=== PATIENT | female | born 1965 | race Caucasian/White ===

== ENCOUNTER 2020-03-31 02:13 | Outpatient (REF) | payer OTHER, SELFPAY ==
[2020-03-31 04:58] LABS: SARS COV2 PCR INHOUSE NEGATIVE (Negative)
[2020-04-04 09:56] LABS: HPV mRNA E6/E7 Not Detected (Not Detected)
== END 2020-03-31 02:14 | disposition home or self-care (01) ==
LOC: HO.LAB 02:13
PROVIDERS: Visit Provider Internal Medicine
DX: Z20.828 Contact with and (suspected) exposure to other viral communicable diseases (principal); N95.0 Postmenopausal bleeding; Z78.0 Asymptomatic menopausal state; Z12.31 Encounter for screening mammogram for malignant neoplasm of breast
CPT/HCPCS: 87624; 87625; 87635; 88142

== ENCOUNTER 2020-04-04 06:04 | Outpatient (REF) | payer OTHER, SELFPAY ==
[2020-04-04 07:29] LABS: COVID-19 Test Negative (Negative)
== END 2020-04-04 06:05 | disposition home or self-care (01) ==
LOC: HO.LAB 06:04
PROVIDERS: Visit Provider Internal Medicine
DX: Z20.828 Contact with and (suspected) exposure to other viral communicable diseases (principal)
CPT/HCPCS: 87635

== ENCOUNTER 2020-05-26 01:05 | Emergency (ER) | payer OTHER, SELFPAY ==
[2020-05-26 01:06] VITALS: BP 138/63; PULSE 80; RESP 16; TEMP 36.6; O2SAT 99; BMI 33.3
--- NOTE | 2020-05-26 01:13 | ED.ALLEREA ---
HPI - Allergic Reaction General Chief complaint: Allergic Reaction Stated complaint: Allergic Reaction Time Seen by Provider: 05/26/20 01:12 Source: patient Mode of arrival: ambulatory Limitations: no limitations History of Present Illness HPI narrative: This is a 54-year-old female who presents with complaints of worsening pruritic rash over the past 3 days that is located on her trunk and is now spreading to the arms this is associated with having undergone treatment with a topical antifungal to the inframammary area. Patient has stopped the antifungal since yesterday and has attempted to get relief and resolution of her rash with musk-los-sbcqhka Benadryl and Pepcid without success. She denies any associated difficulty breathing, shortness of breath, difficulty swallowing. Related Data Home Medications Medication Instructions Recorded Confirmed atorvastatin 40 mg tablet 40 mg PO BEDTIME 03/31/20 coenzyme Q10 10 mg capsule 10 mg PO TID 03/31/20 hydrochlorothiazide 25 mg tablet 25 mg PO BID 03/31/20 omega 3-vzq-dow-fish oil 60 mg-90 1 cap PO DAILY 03/31/20 mg-500 mg capsule Previous Rx's Medication Instructions Recorded prednisone 40 mg PO DAILY 4 Days #8 tab 05/26/20 Allergies Allergy/AdvReac Type Severity Reaction Status Date / Time IVP dye Allergy Unknown Uncoded 07/22/19 00:00 ivp dye Allergy Unknown Uncoded 08/14/19 00:00 Review of Systems Review of Systems: Pertinent positives and negatives as stated in HPI 10 point review of systems otherwise negative. PMFSH Past Medical History Source: nursing notes reviewed Medical History Carpal tunnel syndrome Hx of gastroesophageal reflux (GERD) Hx of hyperlipidemia Obesity (BMI 30-39.9) Postmenopausal bleeding Screening mammogram, encounter for Surgical History H/O bone graft History of ankle surgery History of endometrial ablation Hx of breast reduction, elective Family History Family History Father Myocardial infarction Mother COPD (chronic obstructive pulmonary disease) Brother Diabetes mellitus Maternal Aunt Breast CA Social History Social History Alcohol intake: never Smoking Status: Former smoker Advance Directives: No Physical Exam Vital Signs: Vital Signs: Last Vital Signs Temp 97.9 F 05/26/20 01:06 Pulse 80 05/26/20 01:06 Resp 16 05/26/20 01:06 BP 138/63 05/26/20 01:06 Pulse Ox 99 05/26/20 01:06 Body Mass Index 33.3 VITAL SIGNS: Reviewed. GENERAL: Well developed, well nourished, in no acute distress. HEAD: Normocephalic/atraumatic, EYES: PERRLA, EOMI intact without pain, no nystagmus/pallor/icterus noted EARS: Ext canals without abnormality, TMs non-bulging and non-erythematous NOSE: Nares patent bilateral OROPHARYNX: no oral lesions noted, posterior pharynx clear and non-erythematous without noted tonsillar enlargement/erythema/exudates NECK: Supple, no adenopathy LUNGS: Normal breath sounds. No adventitious sounds or accessory muscle use. SpO2<99> CARDIOVASCULAR: Regular rate and rhythm without noted murmurs, no JVD or lower extremity edema. ABDOMEN: Soft, non-tender, non-distended with bowel sounds. No rigidity. No guarding. No palpable masses or hernias noted MUSCULOSKELETAL: No tenderness, deformities, or effusions noted on gross inspection. EXTREMITIES: No cyanosis, clubbing or edema. SKIN: Urticarial rash to the truncal area an isolated patches on the upper extremities, no ulcerations, jaundice, pallor, or petechiae. NEUROLOGIC: Alert and oriented x 4. Strength and sensation to light touch were grossly intact x 4. Course Course Course Narrative: This is a 54-year-old female with history and clinical presentation most consistent with allergic reaction to recent antifungal use and will treat with IV Solu-Medrol and Benadryl and re-evaluate. On re-evaluation patient reports improvement in feelings of itchiness and she will be discharged with a Medrol Tucker. Discharge Plan Discharge Clinical Impression: Urticarial rash Allergic reaction Qualifiers: Encounter type: initial encounter Qualified Code(s): T78.40XA - Allergy, unspecified, initial encounter Patient Disposition: Home, Self-Care Instructions: Urticaria (ED), General Allergic Reaction (ED) Additional Instructions: Please do not hesitate to return to the emergency department to do experience any difficulty breathing or worsening your rash despite being on the prescribed medication. Please be advise you will need to use an antacid during the time that you are on steroids as you will likely suffer from acid reflux. Prescriptions: New prednisone 20 mg tablet 40 mg PO DAILY 4 Days Qty: 8 RF: 0 No Action hydrochlorothiazide 25 mg tablet 25 mg PO BID RF: 0 atorvastatin 40 mg tablet 40 mg PO BEDTIME RF: 0 coenzyme Q10 [Co Q-10] 10 mg capsule 10 mg PO TID RF: 0 omega 9-mig-rjd-fish oil [Fish Oil] 60-90-500 mg capsule 1 cap PO DAILY RF: 0 Referrals: Physician,Unknown [Primary Care Provider] - 2 days
[2020-05-26] MEDS: methylPREDNISolone Sod Succ/PF 125 MG/2 ML VIAL IVPUSH (01:25)
[2020-05-26] MEDS: diphenhydrAMINE HCL 50 MG/ML VIAL 25 MG IVPUSH (01:25)
== END 2020-05-26 02:05 | disposition home or self-care (01) ==
PROVIDERS: Emergency Provider Student in an Organized Health Care Education/Training Program
DX: L50.0 Allergic urticaria (principal); Z79.899 Other long term (current) drug therapy; Z87.891 Personal history of nicotine dependence
CPT/HCPCS: 96374; 96375; 99283; 99284; J1200; J2930

== ENCOUNTER 2020-07-20 00:08 | Outpatient (REF) | payer OTHER, SELFPAY ==
[2020-07-20 01:19] LABS: MANUAL DIFF FLAG NO
[2020-07-20 01:24] LABS: Basophils Percent Auto 0.5 % (0-2); Eosinophils Absolute Auto 0.1 X10*3/uL (0.0-0.4); Eosinophils Percent Auto 1.6 % (0-4); Hematocrit 35.3 % (37-47); Hemoglobin 12.5 g/dl (12.0-16.0); Imm Gran Abs Auto 0.01 X10*3/uL (0.00-0.03); Imm Gran Pct Auto 0.1 % (0.0-0.4); Lymphocytes Absolute Auto 2.4 X10*3/uL (1.2-4.9); Mean Corpuscular HGB Conc 35.4 g/dl (31.0-35.0); Mean Corpuscular Hemoglobin 32.6 pg (27.0-33.0); Mean Corpuscular Volume 91.9 fL (80-98); Monocytes Absolute Auto 0.6 X10*3/uL (0.1-1.2); Monocytes Percent Auto 7.3 % (2-11); Neutrophils Absolute Auto 4.8 X10*3/uL (2.0-8.3); Neutrophils Percent Auto 60.5 % (45-73); Platelet Count 329 X10*3/uL (160-400); Red Blood Count 3.84 X10*6/uL (4.20-5.50); Red Cell Distribution Width 11.3 % (11.0-16.0)
[2020-07-20 01:47] LABS: Alanine Aminotransferase 31 U/L (0-31); Albumin Level 4.3 g/dL (3.5-5.0); Alkaline Phosphatase 76 U/L (39-117); Anion Gap 13 (12-20); Aspartate Amino Transferase 21 U/L (5-31); Bilirubin Direct 0.2 mg/dL (0.0-0.5); Bilirubin Total 0.5 mg/dL (0.0-1.0); Blood Urea Nitrogen 21 mg/dL (9-16); Calcium 8.6 mg/dL (8.4-10.2); Carbon Dioxide 29 mmol/L (22-29); Chloride 99 mmol/L (96-108); Estimated Glomerular Filt Rate 56; Glucose Random 118 mg/dL (60-115); Potassium 3.2 mmol/L (3.3-5.1); Sodium 138 mmol/L (135-145); Total Protein 6.9 g/dL (6.5-8.0)
[2020-07-20 02:09] LABS: Free T4 (Free Thyroxine) 1.03 ng/dL (0.71-1.85); Thyroid Stimulating Hormone 1.72 uIU/mL (0.32-4.0)
== END 2020-07-20 00:09 | disposition home or self-care (01) ==
LOC: HO.LAB 00:08
PROVIDERS: Visit Provider Dermatology
DX: L30.9 Dermatitis, unspecified (principal)
CPT/HCPCS: 36415; 80048; 80076; 84439; 84443; 85025

== ENCOUNTER 2021-01-13 03:34 | Emergency (ER) | payer OTHER, SELFPAY ==
--- NOTE | ~2021-01-13 | XR_ITS ---
EXAMINATION: XR CHEST CLINICAL INFORMATION: Chest pain COMPARISON: None TECHNIQUE: 2 views of the chest were obtained. FINDINGS: No significant abnormality is noted involving the heart, lungs, mediastinum, bony thorax or soft tissues. XR/XR chest 2V IMPRESSION: Unremarkable examination.
[2021-01-13 03:36] VITALS: BP 142/71; PULSE 74; RESP 16; TEMP 36.7; O2SAT 97; BMI 32.8
--- NOTE | 2021-01-13 03:40 | ECG_ITS ---
Test Reason : CP Blood Pressure : / mmHG Vent. Rate : 072 BPM Atrial Rate : 072 BPM P-R Int : 154 ms QRS Dur : 084 ms QT Int : 406 ms P-R-T Axes : 049 001 003 degrees QTc Int : 444 ms Normal sinus rhythm Possible Left atrial enlargement Possible Anterior infarct , age undetermined Abnormal ECG No previous ECGs available Referred By: Lit Silva Electronically Signed By:Kevin Diaz
[2021-01-13 04:02] LABS: MANUAL DIFF FLAG NO
[2021-01-13 04:04] LABS: Basophils Percent Auto 0.2 % (0-2); Eosinophils Absolute Auto 0.1 X10*3/uL (0.0-0.4); Eosinophils Percent Auto 0.6 % (0-4); Hematocrit 32.2 % (37-47); Hemoglobin 11.4 g/dl (12.0-16.0); Imm Gran Abs Auto 0.03 X10*3/uL (0.00-0.03); Imm Gran Pct Auto 0.3 % (0.0-0.4); Lymphocytes Absolute Auto 2.8 X10*3/uL (1.2-4.9); Lymphocytes Percent Auto 32.2 % (20-40); Mean Corpuscular HGB Conc 35.4 g/dl (31.0-35.0); Mean Corpuscular Volume 93.3 fL (80-98); Mean Platelet Volume 9.5 fL (9.4-12.3); Monocytes Absolute Auto 0.7 X10*3/uL (0.1-1.2); Monocytes Percent Auto 8.4 % (2-11); Neutrophils Absolute Auto 5.1 X10*3/uL (2.0-8.3); Neutrophils Percent Auto 58.3 % (45-73); Platelet Count 285 X10*3/uL (160-400); Red Blood Count 3.45 X10*6/uL (4.20-5.50); Red Cell Distribution Width 11.9 % (11.0-16.0); White Blood Count 8.7 X10*3/uL (4.8-10.8)
[2021-01-13 04:15] LABS: D Dimer 260 NG/ML
[2021-01-13 04:27] LABS: Alanine Aminotransferase 29 U/L (0-31); Albumin Level 4.4 g/dL (3.5-5.0); Alkaline Phosphatase 83 U/L (39-117); Anion Gap 15 (12-20); Aspartate Amino Transferase 20 U/L (5-31); Bilirubin Direct < 0.2 mg/dL (0.0-0.5); Bilirubin Total 0.3 mg/dL (0.0-1.0); Blood Urea Nitrogen 17 mg/dL (9-16); Calcium 9.2 mg/dL (8.4-10.2); Carbon Dioxide 25 mmol/L (22-29); Chloride 100 mmol/L (96-108); Creatinine Clr Calc Pharmacy 92.7; Estimated Glomerular Filt Rate > 60; Glucose Random 110 mg/dL (60-115); Lipase 31 U/L (8-78); Potassium 3.1 mmol/L (3.3-5.1); Sodium 137 mmol/L (135-145); Total Protein 7.1 g/dL (6.5-8.0)
[2021-01-13 04:32] LABS: Troponin-I High Sensitivity 3.5 ng/L (<3.5-17.0)
--- NOTE | 2021-01-13 05:02 | ED_ITS ---
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 Patient is active never had exertional chest pain, no recent travel, no lower extremity swelling or pain, no history of PE or DVT. Related Data Home Medications Medication Instructions Recorded Confirmed atorvastatin 40 mg tablet 40 mg PO BEDTIME 03/31/20 coenzyme Q10 10 mg capsule (Co 10 mg PO TID 03/31/20 Q-10) hydrochlorothiazide 25 mg tablet 25 mg PO BID 03/31/20 omega 5-tjf-voa-fish oil 60 mg-90 1 cap PO DAILY 03/31/20 mg-500 mg capsule (Fish Oil) Previous Rx's Medication Instructions Recorded prednisone 20 mg tablet 40 mg PO DAILY 4 Days #8 tab 05/26/20 Allergies Allergy/AdvReac Type Severity Reaction Status Date / Time IVP dye Allergy Unknown Uncoded 07/22/19 00:00 ivp dye Allergy Unknown Uncoded 08/14/19 00:00 Review of Systems Review of Systems: All other systems are reviewed and are negative Constitutional: Reports as per HPI and Reports no additional constitutional complaints Eyes: Reports as per HPI and Reports no additional eye complaints Reports system reviewed and no additional complaints, except as documented Cardiovascular: Reports as per HPI and Reports no additional cardiovascular complaints Respiratory: Reports as per HPI and Reports no additional respiratory complaints Gastrointestinal: Reports as per HPI and Reports no additional gastrointestinal complaints Genitourinary: Reports no additional female genitourinary complaints Musculoskeletal: Reports no additional musculoskeletal complaints Skin/Breast: Reports system reviewed and no additional complaints, except as docu Psychiatric: Reports no additional psychiatric complaints Endocrine: Reports no additional endocrine complaints Hematologic/Lymphatic: Reports no additional hematologic/lymphatic complaints Allergic/Immunologic: Reports no additional allergic/immunologic complaints Reports system reviewed and no additional complaints, except as documented and Reports Abnormal speech present FOR[facility] Past Medical History Medical History Carpal tunnel syndrome Hx of gastroesophageal reflux (GERD) Hx of hyperlipidemia Obesity (BMI 30-39.9) Postmenopausal bleeding Screening mammogram, encounter for Surgical History H/O bone graft History of ankle surgery History of endometrial ablation Hx of breast reduction, elective Family History Family History Father Myocardial infarction Mother COPD (chronic obstructive pulmonary disease) Brother Diabetes mellitus Maternal Aunt Breast CA Social History Social History Alcohol intake: never Advance Directives: No Advance Directives Information Provided: No Patient : No Physical Exam Vital Signs: Vital Signs: Last Vital Signs Temp 98.0 F 01/13/21 03:36 Pulse 74 01/13/21 03:36 Resp 16 01/13/21 03:36 BP 142/71 H 01/13/21 03:36 Pulse Ox 97 01/13/21 03:36 Body Mass Index 32.8 Vital signs have been reviewed as appeared to be correct. Blood pressure normal. Heart rate normal. Respiration rate normal. Temperature normal. O xygen saturation normal. Appearance: Alert. Oriented X3. No acute distress. Head: Normal external exam. Normocephalic. Atraumatic. No Barnes signs noted. No raccoon eyes noted Eyes: PERRLA. EOMI. Conjunctiva and sclera normal. Eyelids normal. ENT: TM's Normal. Pharynx normal. Uvula midline. Moist mucous membranes. No trismus noted. No drooling noted. No muffled voice noted. Neck: Normal inspection. Neck supple. FROM. No adenopathy. Thyroid Normal. No meningeal signs. No neck mass noted. CVS: Normal heart rate and rhythm. Heart sound normal. No murmurs noted. Pulses normal throughout. Respiratory: No respiratory distress. Painless inspiration. Breath sounds normal. No wheezes/rales/rhonchi noted. Chest nontender. No accessory muscle usage noted or decreased air movement noted. Abdomen: Soft and nontender. Bowel sounds normal in all 4 quadrants. No dis tention noted. No organomegaly noted. No visible injury noted. Back: No CVA tenderness. Full range of motion noted. Skin: Skin warm and dry. Normal skin color. Normal skin turgor. No rashes/les ions/lacerations noted. Extremities: No lower extremity edema. Extremities exhibit normal range of motion. Extremities nontender. Neuro: Oriented X 3. Cranial nerve exam: II-XII are grossly intact No motor deficit. No sensory deficit. Reflexes normal. Course Course Course Narrative: Assessment and plan. 55-year-old female came in with right-sided chest pain for 4 days, patient has unremarkable EKG/troponin/chest x-ray, D-dimer is slightly elevated but still within normal value, no risk factor for DVT or PE. Impression patient with pleurisy will recommend NSAIDs p.r.n. pain. Hypokalemia will replete potassium p.o.. MDM - Chest Pain Lab Data Attestation: I reviewed the patient's lab results. Result diagrams: 01/13/21 03:59 01/13/21 03:59 Labs: Lab Results 01/13/21 01/13/21 01/13/21 Range/Units 03:59 03:59 03:59 WBC 8.7 (4.8-10.8) X10*3/uL RBC 3.45 L (4.20-5.50) X10*6/uL Hgb 11.4 L (12.0-16.0) g/dl Hct 32.2 L (37-47) % MCV 93.3 (80-98) fL MCH 33.0 (27.0-33.0) pg MCHC 35.4 H (31.0-35.0) g/dl RDW 11.9 (11.0-16.0) % Plt Count 285 (160-400) X10*3/uL MPV 9.5 (9.4-12.3) fL Immature Gran % (Auto) 0.3 (0.0-0.4) % Neut % (Auto) 58.3 (45-73) % Lymph % (Auto) 32.2 (20-40) % Trimble % (Auto) 8.4 (2-11) % Eos % (Auto) 0.6 (0-4) % Baso % (Auto) 0.2 (0-2) % Lymph # (Auto) 2.8 (1.2-4.9) X10*3/uL Trimble # (Auto) 0.7 (0.1-1.2) X10*3/uL Eos # (Auto) 0.1 (0.0-0.4) X10*3/uL Baso # (Auto) 0.0 (0.0-0.2) X10*3/uL Abs Immat Gran (auto) 0.03 (0.00-0.03) X10*3/uL Absolute Neuts (auto) 5.1 (2.0-8.3) X10*3/uL Absolute Nucleated RBC 0.000 (0.0-0.012) X10*3/uL Nucleated RBC % (auto) 0.0 (0.0-0.2) /100WBC D-Dimer 260 NG/ML Sodium 137 (135-145) mmol/L Potassium 3.1 L (3.3-5.1) mmol/L Chloride 100 (96-108) mmol/L Carbon Dioxide 25 (22-29) mmol/L Anion Gap 15 (12-20) BUN 17 H (9-16) mg/dL Creatinine 0.66 (0.5-1.4) mg/dL Estim Creat Clear Calc 92.7 Estimated GFR > 60 Random Glucose 110 (60-115) mg/dL Calcium 9.2 D (8.4-10.2) mg/dL Total Bilirubin 0.3 (0.0-1.0) mg/dL Direct Bilirubin < 0.2 (0.0-0.5) mg/dL AST 20 (5-31) U/L ALT 29 (0-31) U/L Alkaline Phosphatase 83 (39-117) U/L Troponin I High Sens (<3.5-17.0) ng/L Total Protein 7.1 (6.5-8.0) g/dL Albumin 4.4 (3.5-5.0) g/dL Lipase 31 (8-78) U/L 01/13/21 Range/Units 03:59 WBC (4.8-10.8) X10*3/uL RBC (4.20-5.50) X10*6/uL Hgb (12.0-16.0) g/dl Hct (37-47) % MCV (80-98) fL MCH (27.0-33.0) pg MCHC (31.0-35.0) g/dl RDW (11.0-16.0) % Plt Count (160-400) X10*3/uL MPV (9.4-12.3) fL Immature Gran % (Auto) (0.0-0.4) % Neut % (Auto) (45-73) % Lymph % (Auto) (20-40) % Trimble % (Auto) (2-11) % Eos % (Auto) (0-4) % Baso % (Auto) (0-2) % Lymph # (Auto) (1.2-4.9) X10*3/uL Trimble # (Auto) (0.1-1.2) X10*3/uL Eos # (Auto) (0.0-0.4) X10*3/uL Baso # (Auto) (0.0-0.2) X10*3/uL Abs Immat Gran (auto) (0.00-0.03) X10*3/uL Absolute Neuts (auto) (2.0-8.3) X10*3/uL Absolute Nucleated RBC (0.0-0.012) X10*3/uL Nucleated RBC % (auto) (0.0-0.2) /100WBC D-Dimer NG/ML Sodium (135-145) mmol/L Potassium (3.3-5.1) mmol/L Chloride (96-108) mmol/L Carbon Dioxide (22-29) mmol/L Anion Gap (12-20) BUN (9-16) mg/dL Creatinine (0.5-1.4) mg/dL Estim Creat Clear Calc Estimated GFR Random Glucose (60-115) mg/dL Calcium (8.4-10.2) mg/dL Total Bilirubin (0.0-1.0) mg/dL Direct Bilirubin (0.0-0.5) mg/dL AST (5-31) U/L ALT (0-31) U/L Alkaline Phosphatase (39-117) U/L Troponin I High Sens 3.5 (<3.5-17.0) ng/L Total Protein (6.5-8.0) g/dL Albumin (3.5-5.0) g/dL Lipase (8-78) U/L Imaging Data Chest x-ray: Radiologist's impression: No acute pathology. ECG Data ECG #1: Interpretation: Normal sinus rhythm at 72 beats per minute, left axis deviation, normal intervals, no ST-T changes. Discharge Plan Discharge Clinical Impression: Pleurisy Patient Disposition: Home, Self-Care Instructions: Pleurisy (ED) Prescriptions: No Action prednisone 20 mg tablet 40 mg PO DAILY 4 Days Qty: 8 RF: 0 hydrochlorothiazide 25 mg tablet 25 mg PO BID RF: 0 atorvastatin 40 mg tablet 40 mg PO BEDTIME RF: 0 coenzyme Q10 [Co Q-10] 10 mg capsule 10 mg PO TID RF: 0 omega 6-ebg-mho-fish oil [Fish Oil] 60-90-500 mg capsule 1 cap PO DAILY RF: 0 Referrals: Physician,Unknown [Primary Care Provider] - 2 days
[2021-01-13 06:22] LABS: Glucose Urine UA NEG (NEG); Leukocyte Esterase Urine 1+ (NEG); Nitrite Urine NEG (NEG); UACC Culture Trigger YES; Urine Blood 1+ (NEG); Urine Ketones NEG (NEG); Urine Protein NEG (NEG-TRACE)
[2021-01-13] MEDS: Potassium Chloride Packet 20 MEQ PACKET 40 MEQ PO (06:30)
[2021-01-13] MEDS: Ibuprofen 600 MG TABLET PO (06:30)
[2021-01-13 06:56] LABS: Appearance Urine CLEAR; Color Urine YELLOW
[2021-01-13 07:21] LABS: Bacteria Urine TRACE /LPF; RBC Urine 0-2 /HPF (0); Squamous Epithelial Cell Urine TRACE /LPF
== END 2021-01-13 06:36 | disposition home or self-care (01) ==
PROVIDERS: Emergency Provider Emergency Medicine
DX: R09.1 Pleurisy (principal); E87.6 Hypokalemia
CPT/HCPCS: 36415; 71046; 80048; 80076; 81001; 83690; 84484; 85025; 85379; 87086; 93005; 99283

== ENCOUNTER 2021-01-25 07:18 | Outpatient (REF) | payer OTHER, SELFPAY ==
--- NOTE | 2021-01-25 | ECG_ITS ---
Test Reason : CP Blood Pressure : / mmHG Vent. Rate : 068 BPM Atrial Rate : 068 BPM P-R Int : 158 ms QRS Dur : 086 ms QT Int : 422 ms P-R-T Axes : 051 005 003 degrees QTc Int : 448 ms Normal sinus rhythm Normal ECG When compared with ECG of 13-JAN-2021 03:51, No significant change was found Referred By: Beryl Kapoor Electronically Signed By:LOUANN HEARN
--- NOTE | ~2021-01-25 | CT_ITS ---
EXAMINATION: CT ANGIOGRAM CHEST WITH AND WITHOUT CONTRAST (CT PULMONARY ANGIOGRAM FOR PE) CLINICAL INFORMATION: Right-sided pleuritic chest pain, elevated D-dimer, chest pain. COMPARISON: None TECHNIQUE: Prior to contrast administration, noncontrast localization images were obtained. Subsequently, multidetector volumetric imaging was performed from the thoracic inlet to below the diaphragms following the administration of 80 mL Omnipaque 350 intravenous contrast. No contrast reaction reported. Sagittal, coronal, and MIP oblique sagittal reformatted images were obtained on the CT workstation, uploaded to PACS, and reviewed. This CT examination was performed using dose optimization techniques as appropriate, variously including the following: *Automated exposure control *Adjustment of mA and/or kV according to patient size (this includes techniques or standardized protocols for targeted exams where dose is matched to indication/reason for exam; i.e. extremities or head) *Use of iterative reconstruction technique Total exam dose-length product 123 mGy-cm. FINDINGS: QUALITY OF STUDY/CONTRAST BOLUS: Satisfactory. PULMONARY ARTERIES: No central or segmental pulmonary emboli. THORACIC AORTA: No aneurysm or dissection. LUNG: The lungs are well expanded and clear of acute pneumonic process. There are no pulmonary nodules, mass or consolidation. PLEURA: No pleural effusion or pneumothorax. MEDIASTINUM: Normal heart size. No pericardial effusion. No hilar or mediastinal lymphadenopathy. No evidence of septal bowing or right heart strain. CHEST WALL/AXILLA: No axillary or internal mammary lymphadenopathy. OSSEOUS STRUCTURES: No acute or suspicious osseous abnormality. UPPER ABDOMEN: Unremarkable. No reflux of contrast into the hepatic veins to suggest elevated right heart pressures. CT/CT angio chest PE protocol IMPRESSION: No evidence of PE. No evidence of aortic dissection. No pleural abnormality or effusion seen. VTE: negative
[2021-01-25] MEDS: iohexoL 350 MG/ML 100 ML INFUS..BTL IV (09:47)
== END 2021-01-25 07:19 | disposition home or self-care (01) ==
LOC: HO.CT 07:18
PROVIDERS: PCP Internal Medicine; Visit Provider Emergency Medicine
DX: R07.81 Pleurodynia (principal); R79.1 Abnormal coagulation profile
CPT/HCPCS: 71275; 93005; Q9967

== ENCOUNTER 2021-01-31 15:49 | Outpatient (REF) | payer OTHER, SELFPAY ==
--- NOTE | ~2021-01-31 | MM_ITS ---
EXAMINATION: MM SCREENING DIGITAL BREAST TOMOSYNTHESIS, BILATERAL CLINICAL INFORMATION: Screening. Asymptomatic. The lifetime risk of breast cancer based on the Tyrer-Cuzick Model is 13%. COMPARISON: Outside mammography: 04/05/2017 ([facility]) TECHNIQUE: Digital breast tomosynthesis is performed in both the craniocaudal and mediolateral oblique views along with computer-aided detection (CAD). Synthesized 2D images are generated from the tomosynthesis. Additional right MLO view is provided. FINDINGS: There are scattered areas of fibroglandular density (ACR BI-RADS breast composition Category b). There are no significant masses, abnormal calcifications, or other abnormalities. Pattern is similar to prior outside exam. No significant changes. The axilla and skin contours are unremarkable. MM/MM tomosynthesis screening BI IMPRESSION: No mammographic evidence of malignancy. ASSESSMENT: BI-RADS 1: Negative RECOMMENDATION: Routine annual mammography screening. This patient's information was entered into a reminder system with a target due date for their next mammogram.
== END 2021-01-31 15:50 | disposition home or self-care (01) ==
LOC: HO.MAMMO 15:49
PROVIDERS: Visit Provider Advanced Practice Midwife
DX: Z12.31 Encounter for screening mammogram for malignant neoplasm of breast (principal)
CPT/HCPCS: 77063; 77067

== ENCOUNTER 2021-07-13 06:12 | Outpatient (REF) | payer OTHER, SELFPAY ==
--- NOTE | ~2021-07-13 | XR_ITS ---
EXAMINATION: XR KNEE, BILATERAL XR KNEE, LEFT CLINICAL INFORMATION: Knee pain COMPARISON: None TECHNIQUE: AP standing view of both knees. Lateral and sunrise views of the left knee. FINDINGS: Left knee: No fracture or subluxation. Compartmental joint spaces are maintained. Small marginal osteophytes of the patellofemoral and medial compartments. Moderate joint effusion noted. Scattered vascular calcifications. Right knee: No fracture or subluxation. Medial and lateral compartmental joint spaces are maintained. XR/XR knee LT 2V IMPRESSION: Mild degenerative changes in the left knee at the medial and patellofemoral compartments. Joint effusion present.
--- NOTE | ~2021-07-13 | XR_ITS ---
EXAMINATION: XR KNEE, BILATERAL XR KNEE, LEFT CLINICAL INFORMATION: Knee pain COMPARISON: None TECHNIQUE: AP standing view of both knees. Lateral and sunrise views of the left knee. FINDINGS: Left knee: No fracture or subluxation. Compartmental joint spaces are maintained. Small marginal osteophytes of the patellofemoral and medial compartments. Moderate joint effusion noted. Scattered vascular calcifications. Right knee: No fracture or subluxation. Medial and lateral compartmental joint spaces are maintained. XR/XR knee standing BI IMPRESSION: Mild degenerative changes in the left knee at the medial and patellofemoral compartments. Joint effusion present.
== END 2021-07-13 06:13 | disposition home or self-care (01) ==
LOC: HO.HOSX 06:12
PROVIDERS: Visit Provider Physician Assistant
DX: M17.12 Unilateral primary osteoarthritis, left knee (principal)
CPT/HCPCS: 20610; 73560; 73565; J1040

== ENCOUNTER → 2021-07-27 11:00 | Outpatient (BNVA) | payer OTHER, SELFPAY | PROVIDERS: PCP Internal Medicine; Visit Provider Anesthesiology ==

== ENCOUNTER 2021-08-08 06:09 | Outpatient (REF) | payer OTHER, SELFPAY ==
--- NOTE | ~2021-08-08 | FL_ITS ---
EXAMINATION: XR FLUOROSCOPY WITH IMAGES CLINICAL INFORMATION: M17.12 - Unilateral primary osteoarthritis, left knee COMPARISON: Radiographs left knee 07/13/2021 TECHNIQUE: Fluoroscopy performed by Dr. Antonio Whitley. Fluoroscopy time: 0.2 minutes DAP: 1.25 Gycm2 Images: 2 FINDINGS: There are spinal needles adjacent to the distal femoral shaft, medial and lateral sides, mid depth. There is a spinal needle adjacent to the proximal tibia on medial side mid depth. FL/FL guidance in treatment room IMPRESSION: Fluoroscopy for pain management procedures.
== END 2021-08-08 06:10 | disposition home or self-care (01) ==
LOC: HO.RADIR 06:09
PROVIDERS: Visit Provider Anesthesiology
DX: M17.12 Unilateral primary osteoarthritis, left knee (principal)
CPT/HCPCS: 64454; J3300

== ENCOUNTER → 2021-08-14 17:04 | Outpatient (BNVA) | payer OTHER, SELFPAY | PROVIDERS: PCP Internal Medicine; Visit Provider Anesthesiology ==

== ENCOUNTER 2021-11-15 08:34 | Emergency (ER) | payer OTHER, SELFPAY ==
[2021-11-15 08:41] VITALS: BP 205/105; PULSE 92; RESP 18; O2SAT 100; BMI 33.0
--- NOTE | 2021-11-15 09:00 | ED.ALLEREA ---
HPI - Allergic Reaction General Chief complaint: Allergic Reaction Stated complaint: Allergic reaction/SOB Time Seen by Provider: 11/15/21 08:59 Source: patient History of Present Illness HPI narrative: patient with 2 bee hives at home got stung by a bee. She was stone in her left ear. She did Benadryl and prednisone. Swelling became progressively worse and now she has a hoarse voice and sensation of swelling or throat. No wheezing. No disseminated rash No prior history of bee sting allergy. Related Data Home Medications Medication Instructions Recorded Confirmed atorvastatin 40 mg tablet 40 mg PO BEDTIME 03/31/20 coenzyme Q10 10 mg capsule (Co 10 mg PO TID 03/31/20 Q-10) hydrochlorothiazide 25 mg tablet 25 mg PO BID 03/31/20 omega 0-koz-dbv-fish oil 60 mg-90 1 cap PO DAILY 03/31/20 mg-500 mg capsule (Fish Oil) Previous Rx's Medication Instructions Recorded prednisone 20 mg tablet 40 mg PO DAILY 4 days #8 tabs 05/26/20 betamethasone valerate 0.1 % 1 appl topical QD-TID PRN eczema 06/28/21 topical ointment #456 grams diphenhydramine HCl 25 mg capsule 25 mg PO TID PRN allergic reaction 11/15/21 (Allergy (diphenhydramine)) #20 caps epinephrine 0.3 mg/0.3 mL 0.3 mg (0.3 mL) IM Q4H PRN 11/15/21 injection, auto-injector anaphylaxis #2 ea famotidine 20 mg tablet (Pepcid AC) 20 mg PO BID #20 tabs 11/15/21 prednisone 20 mg tablet 40 mg PO DAILY #10 tabs 11/15/21 Allergies Allergy/AdvReac Type Severity Reaction Status Date / Time IVP dye Allergy Unknown Unknown Uncoded 08/08/21 15:10 ivp dye Allergy Unknown Unknown Uncoded 08/08/21 15:10 Review of Systems ENT: Reports lip swelling, Reports throat swelling and Denies tongue swelling Comments: Throat swelling sensation. Left lip swelling. Left ear pain and swelling. Left-sided face erythema Respiratory: Comments: no wheezing Gastrointestinal: Comments: no vomiting Integumentary/Breasts: Comments: rashes described Allergic/Immunologic: Allergic/Immunologic: Reports lip swelling, Reports throat swelling and Denies tongue swelling PMFSH Past Medical History Medical History Carpal tunnel syndrome Hx of gastroesophageal reflux (GERD) Hx of hyperlipidemia Obesity (BMI 30-39.9) Postmenopausal bleeding Screening mammogram, encounter for Surgical History H/O bone graft History of ankle surgery History of endometrial ablation Hx of breast reduction, elective Family History Family History Father Myocardial infarction Mother COPD (chronic obstructive pulmonary disease) Brother Diabetes mellitus Maternal Aunt Breast CA Social History Social History (Updated 07/13/21 @ 10:53 by Marc Alicea) Alcohol intake: never Advance Directives: Yes Advance Directives Information Provided: No Advance Directives on File: No Current occupational status: employed Current occupation: [employer] handed?[employer] [facility] [place] Physical Exam ED Vital Signs: Vital Signs - 24 hr 11/15/21 08:41 11/15/21 10:21 Pulse Rate 92 76 Respiratory Rate 18 14 Blood Pressure 205/105 H 128/71 Pulse Oximetry 100 98 Oxygen Delivery Method Room Air Room Air BMI result Body Mass Index 33.0 Const Other: awake alert in no acute distress HENMT Other: swelling and erythema to left ear left-sided face. Left upper lip with some edema. Uvula mildly edematous. No stridor. Good air entry Resp Other: clear and equal without wheezes Skin Other: face redness as described without diffuse rash Neuro Other: ambulatory Course Course Course Narrative: Bee sting allergy No evidence of anaphylaxis. Some angioedema. Treated with IV Benadryl IV Solu-Medrol IV Pepcid 11:38. Re-evaluation shows patient is feeling much better. Uvula is now normal. Facial swelling is decreased substantially. She still has a mild amount of swelling left upper lip and left ear. She denies other complaints. She requests discharge home as she is feeling much better Discharge Plan Discharge Clinical Impression: Allergic reaction Patient Disposition: Home, Self-Care Instructions: General Allergic Reaction (ED) Prescriptions: New epinephrine 0.3 mg/0.3 mL auto-injector 0.3 mg IM Q4H PRN (Reason: anaphylaxis) Qty: 2 0RF prednisone 20 mg tablet 40 mg PO DAILY Qty: 10 0RF diphenhydramine HCl [Allergy (diphenhydramine)] 25 mg capsule 25 mg PO TID PRN (Reason: allergic reaction) Qty: 20 0RF famotidine [Pepcid AC] 20 mg tablet 20 mg PO BID Qty: 20 0RF No Action prednisone 20 mg tablet 40 mg PO DAILY 4 Days Qty: 8 0RF betamethasone valerate 0.1 % ointment 1 appl topical QD-TID PRN (Reason: eczema) Qty: 456 6RF hydrochlorothiazide 25 mg tablet 25 mg PO BID atorvastatin 40 mg tablet 40 mg PO BEDTIME coenzyme Q10 [Co Q-10] 10 mg capsule 10 mg PO TID omega 3-tsp-zwo-fish oil [Fish Oil] 60-90-500 mg capsule 1 cap PO DAILY
[2021-11-15] MEDS: Famotidine/PF 20 MG/2 ML VIAL IVPUSH (09:10)
[2021-11-15] MEDS: methylPREDNISolone Sod Succ 125 MG/2 ML VIAL IVPUSH (09:11)
[2021-11-15] MEDS: diphenhydrAMINE HCL 50 MG/ML VIAL IVPUSH (09:11)
[2021-11-15 10:21] VITALS: BP 128/71; PULSE 76; RESP 14; O2SAT 98
--- NOTE | 2021-11-15 10:57 | PC.NURSE ---
swelling still remains, but hoarness has subsided.
== END 2021-11-15 11:50 | disposition home or self-care (01) ==
PROVIDERS: Emergency Provider Emergency Medicine; PCP Internal Medicine
DX: T78.3XXA Angioneurotic edema, initial encounter (principal); T63.441A Toxic effect of venom of bees, accidental (unintentional), initial encounter; Y92.017 Garden or yard in single-family (private) house as the place of occurrence of the external cause
CPT/HCPCS: 96374; 96375; 99284; J1200; J2930